=== PATIENT | male | born 1970 | race Caucasian/White ===

== ENCOUNTER → 2018-02-20 | Outpatient (CLI) | payer OTHER ==
--- NOTE | 2018-02-20 22:48 | CONS ---
CONSULTATION REASON FOR CONSULTATION: Sleep apnea. This is a 47-year-old male patient, the of a [employer] nurse, coming in to be evaluated for sleep apnea. The patient has been feeling low energy, low stamina, lack of ambition and feeling tired and some degree of sleepiness throughout the day. This has been going on for the past year and it is gradually getting worse. He has gained weight and he is also snoring. This was obvious concern for obstructive sleep apnea. He is having some issues with nocturia. He goes to bed around 9 to 10 p.m., wakes up at 5:20 a.m. in the morning. He goes to work at 5:30 and returns back in the afternoon at around 4 p.m. 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 As such, his sleep is fragmented. No sleep paralysis. No hallucinations. No cataplexy. No anxiety. No depression. No head trauma. No substance abuse. PAST MEDICAL HISTORY: 1. Hypertension. 2. Acid reflux. PAST SURGICAL HISTORY: Left rotator cuff repair. DRUG ALLERGIES: NOT KNOWN. OUTPATIENT MEDICATION LIST: Outpatient medication lists includes: 1. Nexium 40 daily. 2. Losartan 50 daily. 3. Oxybutynin 50 mg p.o. daily. 4. Herson aspirin 81 mg p.o. daily. SOCIAL HISTORY: The patient is a nonsmoker. No history of alcoholism. No history of IV drugs. FAMILY HISTORY: Negative for sleep apnea. REVIEW OF SYSTEMS: Twelve-point review of systems was done. Negative except for things mentioned above in the history of present illness. He does not wake up for issues related to chest pain, shortness of breath or heartburn. He wakes up non-refreshed during the day. He does not fall asleep while driving. No sleep paralysis. No hallucinations. No cataplexy. No headaches. No altered mentation. PHYSICAL EXAMINATION: BP is 123/87, pulse 84, respirations 16, temperature 98.1, saturation 93% on room air. Weight is 216. Height is 5 feet 8 inches, BMI 31.8. Neck size 16-1/2 inches. GENERAL APPEARANCE: Calm, comfortable. Head is atraumatic, normocephalic. NECK: Supple. Mallampati class IV. There is no goiter or neck mass. LUNGS: Clear to auscultation. HEART: Heart sounds are regular rate and rhythm. Normal S1, S2. No S3, S4. No murmurs. ABDOMEN: Soft and nontender. EXTREMITIES: No edema. No cyanosis or clubbing. NEUROLOGIC: The patient is alert and oriented x3. No focal neurological deficits. PSYCHIATRY: Negative for anxiety or depression. IMPRESSION: 1. Excessive tiredness and fatigue and diminished energy. 2. Mild hypersomnia. [place] score is 4. 3. Loud snoring. 4. Sleep fragmentation. 5. Possible insufficient sleep syndrome. 6. Hypertension. 7. Heartburn. PLAN: 1. Would like to extend sleep hours to an average of 7 to 8 hours; preferably sleep has to be non-fragmented, if possible. 2. Encourage weight loss. 3. Implement good sleep hygiene measures. 4. Proceed with a screening polysomnogram to characterize his symptoms and see if there is any underlying sleep breathing disorder. MMODL / IJN: [id number] /
== END | disposition home or self-care (01) ==
LOC: SLEEP 14:16
PROVIDERS: ATTEND Internal Medicine Critical Care Medicine
DX: G47.10 Hypersomnia, unspecified (principal); I10 Essential (primary) hypertension; R53.83 Other fatigue; R12 Heartburn; K21.9 Gastro-esophageal reflux disease without esophagitis; Z79.899 Other long term (current) drug therapy; Z79.82 Long term (current) use of aspirin; Z98.890 Other specified postprocedural states
CPT/HCPCS: 99211

== ENCOUNTER → 2020-06-02 | Outpatient (CLI) | payer OTHER ==
[2020-06-02 15:03] LABS: Basophils % (A) 1 %; Eosinophils # (A) 0.1 k/uL (0-0.7); Eosinophils % (A) 2 %; HCT 45.9 % (39.0-53.0); HGB 15.6 gm/dL (13.0-17.5); Lymphocytes # (A) 2.1 k/uL (1.0-4.8); Lymphocytes % (A) 34 %; MCH 31.6 pg (25.0-35.0); MCHC 34.1 g/dL (31.0-37.0); MCV 92.8 fL (80.0-100.0); Mean Platelet Volume 6.7; Monocytes # (A) 0.5 k/uL (0-1.0); Monocytes % (A) 8 %; Neutrophils # (A) 3.4 k/uL (1.3-7.7); Neutrophils % (A) 54 %; Platelet Count 261 k/uL (150-450); RBC 4.95 m/uL (4.30-5.90); RDW 12.7 % (11.5-15.5); WBC 6.3 k/uL (3.8-10.6)
[2020-06-02 15:11] LABS: Potassium 4.5 mmol/L (3.5-5.1)
== END | disposition home or self-care (01) ==
LOC: LABPAT 13:56
PROVIDERS: ATTEND Orthopaedic Surgery
DX: Z01.812 Encounter for preprocedural laboratory examination (principal); M75.42 Impingement syndrome of left shoulder
CPT/HCPCS: 36415; 80051; 85025

== ENCOUNTER 2020-06-11 05:55 | Day surgery (SDC) | payer OTHER ==
[2020-06-09 11:43] VITALS: BMI 28.0
--- NOTE | 2020-06-10 16:29 | HP ---
HISTORY AND PHYSICAL Surgery is scheduled for 06/11/2020. Brenden Villar is a 49-year-old gentleman seen with progressive left shoulder pain. We discussed options for treatment. He elected to proceed with arthroscopy. Consent regarding the procedure was obtained. PAST MEDICAL HISTORY: Hypertension. PAST SURGICAL HISTORY: Left shoulder arthroscopy, herniorrhaphy. DAILY MEDICATIONS: 1. Adderall. 2. Losartan. SOCIAL HISTORY: Denies tobacco use. ALLERGIES: Allergies are none known. PHYSICAL EVALUATION OF LEFT SHOULDER: Flexion 140, abduction 110, external rotation is 40 with significant weakness. Tenderness along the anterior lateral acromion and rotator cuff insertion site. Impingement sign is positive at 90. Drop-arm sign is positive. His distal neurovascular exam is intact. Radiographs of the left shoulder failed to reveal any osseous abnormality. MRI left shoulder revealed a full-thickness rotator cuff tear. IMPRESSION: 1. Left shoulder impingement with rotator cuff tear. 2. Hypertension. PLAN: Left shoulder arthroscopy with rotator cuff repair, decompression and debridement. MMODL / IJN: [id number] /
[~2020-06-11 05:55] MED LIST: DEXAMETHASONE SOD PHOSPHATE 4 MG/ML 1 ML VIAL IV ONE; HYDROmorphone 0.5 MG/0.5 ML SYRINGE IVP PRN; LIDOCAINE 1% (10MG/ML) FOR IV START INTRADERMA PRN; MIDAZOLAM 2 MG/2 ML VIAL IV PRN; ONDANSETRON 4 MG/2 ML VIAL IVP ONE; fentaNYL (PF) 50 MCG/ML 2 ML AMP IVP PRN
[2020-06-11] MEDS: LACTATED RINGERS 1,000 ML IV SCH ×2 (06:50→07:24)
[2020-06-11] MEDS ORDERED: SCOPOLAMINE 1.5MG/72HR PATCH TRANSDERM ONE (06:57)
[2020-06-11] MEDS ORDERED: GLYCOPYRROLATE 0.2 MG/ML 2 ML VIAL ONE (07:23)
[2020-06-11] MEDS ORDERED: PHENYLEPHRINE-0.9% NACL SYG 1,000 MCG/10 ML SYRINGE ONE (07:23)
[2020-06-11] MEDS ORDERED: DEXAMETHASONE SOD PHOSPHATE 4 MG/ML 1 ML VIAL ONE (07:23)
[2020-06-11] MEDS ORDERED: ROPIVACAINE 5 MG/ML 30 ML VIAL ONE (07:23)
[2020-06-11] MEDS ORDERED: LIDOCAINE 1% INJ 10MG/ML (20 ML MDV) ONE (07:23)
[2020-06-11] MEDS ORDERED: MIDAZOLAM 2 MG/2 ML VIAL ONE (07:23)
[2020-06-11] MEDS ORDERED: PROPOFOL 10 MG/ML 20 ML VIAL IV ONE (07:23)
[2020-06-11] MEDS ORDERED: SUCCINYLCHOLINE CHLORIDE 100 MG/5 ML SYR IV ONE (07:23)
[2020-06-11] MEDS ORDERED: NEOSTIGMINE 1 MG/ML 10 ML VIAL ONE (07:23)
[2020-06-11] MEDS ORDERED: fentaNYL (PF) 50 MCG/ML 2 ML AMP ONE (07:23)
[2020-06-11] MEDS ORDERED: ROCURONIUM 10 MG/ML (5 ML VIAL) IV ONE (07:23)
[2020-06-11] MEDS ORDERED: LACTATED RINGERS 1,000 ML IV ONE (08:38)
--- NOTE | 2020-06-11 09:55 | P.OP ---
Date of Procedure: 06/11/20 Preoperative Diagnosis: Left shoulder impingement with rotator cuff tear Postoperative Diagnosis: 1. Left shoulder rotator cuff tear 2. Left shoulder impingement Procedure(s) Performed: 1. Left shoulder arthroscopic rotator cuff repair 2. Left shoulder arthroscopic subacromial decompression Implants: 4Arthrex swivel lock anchors Anesthesia: GETA, regional (Interscalene block) Surgeon: Luis Fernando Main Pcat Instructor #1: Leo Kilgore Estimated Blood Loss (ml): 7 Pathology: none sent Condition: stable Disposition: PACU Indications for Procedure: 49-year-old gentleman seen with progressive left shoulder pain. After treatment options were discussed, he elected to proceed with arthroscopy. Operative Findings: See description of procedure Description of Procedure: Patient underwent an interscalene block by department of anesthesia. The patient was then taken to the operative suite. The patient underwent a general anesthetic by the department of anesthesia. The patient was placed into a lateral position and secured. There was appropriate padding of the bony prominence. Left shoulder was then prepped and draped in normal sterile orthopedic fashion. We placed the extremity in 10 pounds of longitudinal traction. A posterior incision was now made for a posterior working portal site. The trocar and cannula were inserted into the glenohumeral joint. Arthroscopy was initiated. Spinal needle was now inserted anteriorly, to ascertain the anterior working portal site. An incision was now made in that area, a trocar was inserted followed by a probe. The labrum was probed and it was found to be stable. The biceps tendon was absent. There was mild grade 1, she changes noted. There was a complete retracted rotator cuff tear visualized from the glenohumeral joint. At this point instruments removed from the glenohumeral joint. Utilizing the posterior working portal site, the trocar and cannula were inserted into the subacromial space. Arthroscopy initiated. I made an incision 2 fingerbreadths lateral to the acromion. I introduced my trocar followed by my ArthroCare ablator. I now began ablating thick subacromial bursal tissue, which exposed the undersurface of the anterior acromion. There was was some spurring along the anterior acromion. I introduced a motorized bur and performed a subacromial decompression. There was good decompression of subacromial space. I turned my attention to the rotator cuff. There was a 3 cm rotator cuff tear. There was residual suture consistent with his previous arthroscopic rotator cuff repair. I debrided out the residual suture. I could visualize 3 of the peek anchors previous inserted to repair his tendon. Those previous anchors were now removed without difficulty. I debrided the margins getting down to stable tendon tissue. I introduced my motorized bur and abraded the footprint area, getting some petechial bleeding. I now made an accessory portal site off the lateral aspect of the acromion. I punched 3 holes medial for medial row fixation with the assistance of Leo MENON carefully tapping the punch with a mallet as I held the punch and the camera. I now introduced both anchors into the pre- punched holes and Leo MEONN tapped them with the mallet as I held anchors and the camera. Leo MENON now screwed the anchors in place a while I held the anchor guide and camera. All 8 limbs of suture were now passed through good bites of rotator cuff tendon. I now punched 2 holes for lateral row fixation again I held the punch and camera while Leo Lucas used a mallet to tap in the punch. We now passed sutures through both anchors and individually I introduced the anchors into the pre-punch holes I held the anchor guide in position with one hand holding the camera with the other hand while Leo MENON tensioned the sutures and screwed in the anchors one at a time. All residual suture limbs were now clipped. We had good compression of the tendon along the entire footprint. Instruments now removed from the portal sites. All portal sites were approximated with nylon suture. Sterile dressings were applied followed by a shoulder immobilizer. Leo MENON assisted in this complex case. The patient was awakened, transferred to a bed, and taken to recovery in stable condition.
[2020-06-11 10:05] VITALS: TEMP 97
[2020-06-11 10:19] VITALS: RESP 16
--- NOTE | 2020-06-11 10:59 | P.ANPRN ---
Procedure Note - Anesthesia - Nerve Block Performed Left Interscalene Single Time Out Performed: Yes Date of Procedure: 06/11/20 Procedure Start Time: 07:00 Procedure Stop Time: 07:09 Location of Patient: PreOp Indication: Acute Post-Operative Pain, Requested by Surgeon Sedation Type: Sedate with meaningful contact maintained Preparation: Sterile Prep Position: Supine Needle Types: Pajunk Needle Gauge: 21 Ultrasound used to visualize needle placement: Yes Ultrasound used to observe medication spread: Yes Blood Aspirated: No Pain Paresthesia on Injection Noted: No Resistance on Injection: Normal Image Stored and Saved: Yes Events: Uneventful and Well Tolerated (ropi .5% 30cc plus dexamethasone 4mg)
[2020-06-11] MEDS ORDERED: HYDROcodone/APAP 7.5-325MG 1 EACH TAB ONE (11:50)
[2020-06-11] MEDS ORDERED: HYDROcodone/APAP 7.5-325MG 1 EACH TAB PO ONE (11:55)
[2020-06-11 12:39] VITALS: BP 134/69; PULSE 89
== END 2020-06-11 12:57 | disposition home or self-care (01) ==
LOC: OR 05:55
PROVIDERS: ATTEND Orthopaedic Surgery
DX: M75.102 Unspecified rotator cuff tear or rupture of left shoulder, not specified as traumatic (principal); M25.812 Other specified joint disorders, left shoulder; I10 Essential (primary) hypertension; K21.9 Gastro-esophageal reflux disease without esophagitis; Z98.890 Other specified postprocedural states; F98.8 Other specified behavioral and emotional disorders with onset usually occurring in childhood and adolescence; Z79.899 Other long term (current) drug therapy
CPT/HCPCS: 64415; 76942; 29826; 29827; C1713 ×3; J2250; J1100; J2710; J0690; J2405; J2001; J3010; J2795; J2370; J0330; J2704

== ENCOUNTER 2022-03-03 11:16 | Emergency (ER) | payer OTHER ==
[2022-03-03 11:39] VITALS: TEMP 97.6
--- NOTE | 2022-03-03 12:15 | XR ---
EXAMINATION TYPE: XR finger RT DATE OF EXAM: 03/03/2022 COMPARISON: None HISTORY: Pain fourth digit TECHNIQUE: Three-view ring finger FINDINGS: No acute fractures or dislocations are evident. Soft tissues are normal. Joint spaces are p reserved. Follow-up exams from 7-10 days from acute trauma for continued pain. IMPRESSION: 1. No acute osseous abnormality right ring finger
--- NOTE | 2022-03-03 12:16 | XR ---
EXAMINATION TYPE: XR chest 2V DATE OF EXAM: 03/03/2022 COMPARISON: None INDICATION: Cough TECHNIQUE: Frontal and lateral views of the chest are obtained. FINDINGS: The heart size is normal. The pulmonary vasculature is normal. The lungs are clear. IMPRESSION: 1. No acute pulmonary process.
--- NOTE | 2022-03-03 13:09 | ED ---
General Adult HPI - General Chief complaint: Upper Respiratory Infection Stated complaint: flu symptoms Time Seen by Provider: 03/03/22 11:43 Source: patient, RN notes reviewed Mode of arrival: ambulatory Limitations: no limitations - History of Present Illness Initial comments: 51-year-old male presents emergency Department with chief complaint of headache, fever congestion cough. Patient states been sick for last 3 days states initially started as the worse headache which is now improving did take some Aleve, Tylenol. Patient has a cough which is complaining of some left back rib pain. Patient denies any sick contacts he states that he felt ulna to call work. He was unsure why history of his nature denies any GI symptoms including nausea vomiting diarrhea constipation. Patient also complains of her right injury to his right hand fourth digit that happened approximately one month ago. He states that it's sensitive to touch, still mildly swollen decreased range of motion. - Related Data Home Medications Medication Instructions Recorded Confirmed Acetaminophen Tab [Tylenol Tab] 1,000 mg PO HS PRN 01/21/15 06/11/20 Dextroamphetamine/Amphetamine 40 mg PO DAILY 06/09/20 06/11/20 [Adderall] Esomeprazole Magnesium 40 mg PO DAILY 06/09/20 06/11/20 Losartan [Cozaar] 50 mg PO DAILY 06/09/20 06/09/20 Oxybutynin ER [Ditropan Xl] 15 mg PO DAILY 06/09/20 06/09/20 Previous Rx's Medication Instructions Recorded HYDROcodone/APAP 7.5-325MG [[place] 1 each PO Q6HR PRN #28 tab 06/11/20 7.5] Allergies Allergy/AdvReac Type Severity Reaction Status Date / Time No Known Allergies Allergy Verified 03/03/22 11:39 Review of Systems ROS Statement: Those systems with pertinent positive or pertinent negative responses have been documented in the HPI. ROS Other: All systems not noted in ROS Statement are negative. Past Medical History Past Medical History: No Reported History Additional Past Medical History / Comment(s): LEFT SHOULDER INJURY History of Any Multi-Drug Resistant Organisms: None Reported Past Surgical History: Hernia Repair Past Anesthesia/Blood Transfusion Reactions: No Reported Reaction Past Psychological History: No Psychological Hx Reported Past Alcohol Use History: Occasional Past Drug Use History: None Reported - Past Family History Mother Family Medical History: No Reported History General Exam Limitations: no limitations General appearance: alert, in no apparent distress Head exam: Present: atraumatic, normocephalic, normal inspection Eye exam: Present: normal appearance, PERRL, EOMI. Absent: scleral icterus, conjunctival injection, periorbital swelling ENT exam: Present: normal exam, normal oropharynx, mucous membranes moist Neck exam: Present: normal inspection, full ROM. Absent: tenderness, meningismus, lymphadenopathy Respiratory exam: Present: normal lung sounds bilaterally. Absent: respiratory distress, wheezes, rales, rhonchi, stridor Cardiovascular Exam: Present: regular rate, normal rhythm, normal heart sounds. Absent: systolic murmur, diastolic murmur, rubs, gallop, clicks GI/Abdominal exam: Present: soft, normal bowel sounds. Absent: distended, tenderness, guarding, rebound, rigid Neurological exam: Present: alert Skin exam: Present: warm, dry, intact, normal color. Absent: rash Course Vital Signs 03/03/22 03/03/22 11:37 13:19 Temperature 97.6 F Pulse Rate 101 H 95 Respiratory 18 16 Rate Blood Pressure 142/92 143/96 O2 Sat by Pulse 98 99 Oximetry Medical Decision Making - Medical Decision Making Patient is influenza A positive. Patient chest x-ray, x-ray of the finger does not reveal any acute processes as interpreted by me. Patient we discharged in stable condition return parameters were discussed. - Lab Data Lab Results 03/03/22 Range/Units 11:42 Influenza Type A (PCR) Detected A (Not Detectd) Influenza Type B (PCR) Not Detected (Not Detectd) RSV (PCR) Not Detected (Not Detectd) SARS-CoV-2 (PCR) Not Detected (Not Detectd) Disposition Clinical Impression: Influenza A Disposition: HOME SELF-CARE Condition: Stable Instructions (If sedation given, give patient instructions): Influenza (ED) Additional Instructions: Please return to the Emergency Department if symptoms worsen or any other concerns. Is patient prescribed a controlled substance at d/c from ED?: No Referrals: Dez Chen MD [Primary Care Provider] - 1-2 days Time of Disposition: 13:09
[2022-03-03 13:19] VITALS: BP 143/96; PULSE 95; RESP 16
== END 2022-03-03 13:19 | disposition home or self-care (01) ==
LOC: EC 11:16
DX: J10.1 Influenza due to other identified influenza virus with other respiratory manifestations (principal); Z20.822 Contact with and (suspected) exposure to COVID-19
CPT/HCPCS: 71046; 87636; 99283